=== PATIENT | female | born 1995 | race Caucasian/White ===

== ENCOUNTER 2017-01-06 10:29 | Emergency (ER) | payer OTHER ==
[~2017-01-06] VITALS: Ht 157.5 cm; Wt 62.0 kg
[~2017-01-06 10:29] MED LIST: AC325T PO; CEPH500C PO; CIPR500T4 PO; CPR500T PO; IBP200T PO; NITR100C3 PO; NO HOME MEDS; PHEN-640 PO
--- NOTE | 2017-01-06 11:02 | NUR ---
PT CRYING OUT LOUD WHILE IN ROOM LOUD ENOUGH FOR STAFF TO HEAR AT THE NURSES STATION. PT WAS NOT TEARFUL ON TRIAGE & HAD JUST PURCHASED DORITOS FROM [employer] WHILE THIS RN WAS WAITING FOR HER TO COME INTO THE TRIAGE RM. PT ASKED TO NOT EAT THEM UNTIL THE MD APPROVED THAT. PT ALSO ASKS FOR A DRINK OF WATER & THIS RN REPEATS WE WILL GET THE OK FROM THE MD FIRST. ED MD INFORMED OF BOTH. CL
[2017-01-06] MEDS ORDERED: HYDROmorphone 1 MG/ML (DILAUDID) SYRINGE IM ONE (11:05)
[2017-01-06] MEDS ORDERED: HYDR-3702 PO (11:07)
[2017-01-06] MEDS ORDERED: CLR500T PO (11:07)
[2017-01-06 11:17] VITALS: BP 107/76
== END 2017-01-06 11:17 | disposition home or self-care (01) ==
LOC: ED 10:31
DX: K08.89 Other specified disorders of teeth and supporting structures (principal)
CPT/HCPCS: 96372; 99282; J1170; 99283